=== PATIENT | male | born 1970 | race Two or more races ===

== ENCOUNTER → 2021-03-28 | Outpatient (CLI) | payer BC ==
[2021-03-28 11:31] LABS: Anisocytosis Slight; Basophils # (A) 0.1 k/uL (0-0.2); Basophils % (A) 1 %; Eosinophils # (A) 0.6 k/uL (0-0.7); Eosinophils % (A) 6 %; HCT 49.2 % (39.0-53.0); HGB 14.7 gm/dL (13.0-17.5); Hypochromasia Marked; Lymphocytes # (A) 1.5 k/uL (1.0-4.8); Lymphocytes % (A) 16 %; MCH 20.3 pg (25.0-35.0); MCHC 29.8 g/dL (31.0-37.0); MCV 68.3 fL (80.0-100.0); Mean Platelet Volume 7.3; Microcytosis Marked; Monocytes # (A) 0.4 k/uL (0-1.0); Monocytes % (A) 5 %; Neutrophils # (A) 6.3 k/uL (1.3-7.7); Neutrophils % (A) 68 %; Platelet Count 481 k/uL (150-450); WBC 9.2 k/uL (3.8-10.6)
[2021-03-28 11:43] LABS: RBC 7.28 m/uL (4.30-5.90)
== END | disposition home or self-care (01) ==
LOC: LABWHC1 10:57 → EDSTATUS 11:00
PROVIDERS: ATTEND Internal Medicine Hematology & Oncology
DX: D45 Polycythemia vera (principal)
CPT/HCPCS: 36415; 85025

== ENCOUNTER → 2021-03-28 | Outpatient (CLI) | payer BC ==
[2021-03-28 11:32] VITALS: RESP 16; TEMP 98.8
[2021-03-28 12:23] VITALS: BP 147/106; PULSE 78
== END | disposition home or self-care (01) ==
LOC: EDSTATUS 10:45 → PROCWHC3 11:17
PROVIDERS: ATTEND Internal Medicine Hematology & Oncology
DX: D45 Polycythemia vera (principal)
CPT/HCPCS: 99195

== ENCOUNTER → 2021-11-02 | Outpatient (CLI) | payer BC ==
[~2021-11-02] MED LIST: SODIUM CHLORIDE 0.9% 500 ML 500 ML in EMPTY BAG 1 BAG IV PRN
[2021-11-02 12:02] VITALS: RESP 16; TEMP 98.5
[2021-11-02 12:36] LABS: Anisocytosis Slight; HCT 48.4 % (39.0-53.0); HGB 14.3 gm/dL (13.0-17.5); Hypochromasia Marked; MCH 21.1 pg (25.0-35.0); MCHC 29.7 g/dL (31.0-37.0); MCV 71.2 fL (80.0-100.0); Mean Platelet Volume 7.8; Microcytosis Marked; Platelet Count 491 k/uL (150-450); RBC 6.79 m/uL (4.30-5.90); RDW 19.4 % (11.5-15.5); WBC 10.8 k/uL (3.8-10.6)
[2021-11-02 12:56] VITALS: BP 165/117; PULSE 83
== END | disposition home or self-care (01) ==
LOC: PROCWHC3 11:27
PROVIDERS: ATTEND Internal Medicine Hematology & Oncology
DX: E80.1 Porphyria cutanea tarda (principal)
CPT/HCPCS: 36415; 85027; 99195

== ENCOUNTER → 2022-04-26 | Outpatient (CLI) | payer BC ==
[2022-04-26 11:20] VITALS: RESP 16; TEMP 98
[2022-04-26 11:30] LABS: Anisocytosis Slight; Basophils # (A) 0.1 k/uL (0-0.2); Basophils % (A) 1 %; Eosinophils # (A) 0.8 k/uL (0-0.7); Eosinophils % (A) 8 %; HCT 49.5 % (39.0-53.0); Hypochromasia Marked; Lymphocytes # (A) 1.6 k/uL (1.0-4.8); Lymphocytes % (A) 15 %; MCH 19.8 pg (25.0-35.0); MCHC 28.4 g/dL (31.0-37.0); MCV 69.9 fL (80.0-100.0); Mean Platelet Volume 7.9; Microcytosis Marked; Monocytes # (A) 0.6 k/uL (0-1.0); Monocytes % (A) 6 %; Neutrophils # (A) 6.8 k/uL (1.3-7.7); Neutrophils % (A) 67 %; Platelet Count 462 k/uL (150-450); RDW 19.3 % (11.5-15.5); WBC 10.1 k/uL (3.8-10.6)
[2022-04-26 11:56] LABS: RBC 7.08 m/uL (4.30-5.90)
[2022-04-26 13:09] VITALS: BP 163/115; PULSE 77
== END | disposition home or self-care (01) ==
LOC: PROCWHC3 10:54
PROVIDERS: ATTEND Internal Medicine Hematology & Oncology
DX: E80.1 Porphyria cutanea tarda (principal)
CPT/HCPCS: 36415; 85025; 99195

== ENCOUNTER → 2023-05-16 | Outpatient (CLI) | payer BC ==
[2023-05-16 07:49] VITALS: RESP 16; TEMP 97.8
[2023-05-16 08:09] LABS: Anisocytosis Slight; Basophils % (A) 0 %; Eosinophils # (A) 1.2 k/uL (0-0.7); Eosinophils % (A) 12 %; HGB 17.9 gm/dL (13.0-17.5); Hypochromasia Marked; Lymphocytes # (A) 1.4 k/uL (1.0-4.8); Lymphocytes % (A) 14 %; MCH 22.2 pg (25.0-35.0); MCHC 30.6 g/dL (31.0-37.0); MCV 72.4 fL (80.0-100.0); Microcytosis Marked; Monocytes # (A) 0.4 k/uL (0-1.0); Monocytes % (A) 4 %; Neutrophils # (A) 6.8 k/uL (1.3-7.7); Neutrophils % (A) 68 %; Platelet Count 459 k/uL (150-450); RDW 19.3 % (11.5-15.5); WBC 10.1 k/uL (3.8-10.6)
[2023-05-16 08:12] LABS: RBC 8.06 m/uL (4.30-5.90)
[2023-05-16 08:15] LABS: HCT 58.3 % (39.0-53.0)
[2023-05-16 08:37] VITALS: BP 156/107; PULSE 93
== END ==
LOC: PROCWHC3 07:29
PROVIDERS: ATTEND Internal Medicine Hematology & Oncology
DX: D75.1 Secondary polycythemia (principal)
CPT/HCPCS: 36415; 85025; 99195

== ENCOUNTER → 2023-12-12 | Outpatient (CLI) | payer BC ==
[2023-12-12 13:30] VITALS: RESP 16; TEMP 97.9
[2023-12-12 13:40] LABS: Anisocytosis Moderate; Basophils # (A) 0.1 k/uL (0-0.2); Basophils % (A) 1 %; Eosinophils # (A) 0.7 k/uL (0-0.7); Eosinophils % (A) 7 %; HGB 17.4 gm/dL (13.0-17.5); Hypochromasia Marked; Lymphocytes # (A) 1.2 k/uL (1.0-4.8); Lymphocytes % (A) 11 %; MCH 22.1 pg (25.0-35.0); MCHC 29.6 g/dL (31.0-37.0); MCV 74.8 fL (80.0-100.0); Mean Platelet Volume 6.9; Microcytosis Moderate; Monocytes # (A) 0.4 k/uL (0-1.0); Monocytes % (A) 4 %; Neutrophils # (A) 7.7 k/uL (1.3-7.7); Neutrophils % (A) 75 %; Platelet Count 496 k/uL (150-450); WBC 10.3 k/uL (3.8-10.6)
[2023-12-12 14:00] LABS: RBC 7.92 m/uL (4.30-5.90)
[2023-12-12 14:01] LABS: HCT 58.7 % (39.0-53.0)
[2023-12-12 14:43] VITALS: BP 203/128; PULSE 87
== END ==
LOC: PROCWHC3 13:00
PROVIDERS: ATTEND Internal Medicine Hematology & Oncology
DX: D75.1 Secondary polycythemia (principal)
CPT/HCPCS: 36415; 85025; 99195

== ENCOUNTER → 2024-02-05 | Outpatient (CLI) | payer BC ==
[2024-02-05 11:54] LABS: Anisocytosis Slight; HGB 16.4 gm/dL (13.0-17.5); Hypochromasia Marked; MCH 21.2 pg (25.0-35.0); MCHC 29.3 g/dL (31.0-37.0); MCV 72.4 fL (80.0-100.0); Mean Platelet Volume 7.1; Microcytosis Moderate; Platelet Count 418 k/uL (150-450); Poikilocytosis Slight; RDW 18.6 % (11.5-15.5); WBC 11.4 k/uL (3.8-10.6)
[2024-02-05 12:04] LABS: HCT 56.2 % (39.0-53.0); RBC 7.76 m/uL (4.30-5.90)
[2024-02-05 12:12] VITALS: BP 181/127; PULSE 83; RESP 16; TEMP 98.2
== END ==
LOC: PROCWHC3 11:19
PROVIDERS: ATTEND Family Medicine
DX: D75.1 Secondary polycythemia (principal)
CPT/HCPCS: 36415; 85027; 99195

== ENCOUNTER → 2024-06-11 | Outpatient (CLI) | payer BC ==
[2024-06-11 13:11] VITALS: PULSE 101; RESP 18; TEMP 98.4
[2024-06-11 13:52] VITALS: BP 161/110
[2024-06-11 14:00] LABS: Anisocytosis Slight; Basophils % (A) 1 %; Eosinophils # (A) 0.6 k/uL (0-0.7); Eosinophils % (A) 6 %; HCT 52.7 % (39.0-53.0); Hypochromasia Marked; Lymphocytes # (A) 1.1 k/uL (1.0-4.8); Lymphocytes % (A) 12 %; MCH 21.1 pg (25.0-35.0); MCHC 30.3 g/dL (31.0-37.0); MCV 69.6 fL (80.0-100.0); Mean Platelet Volume 8.3; Microcytosis Marked; Monocytes # (A) 0.4 k/uL (0-1.0); Monocytes % (A) 4 %; Neutrophils # (A) 7.4 k/uL (1.3-7.7); Neutrophils % (A) 76 %; Platelet Count 402 k/uL (150-450); Poikilocytosis Slight; RDW 19.4 % (11.5-15.5); WBC 9.8 k/uL (3.8-10.6)
[2024-06-11 14:03] LABS: RBC 7.57 m/uL (4.30-5.90)
== END ==
LOC: PROCWHC3 12:49
PROVIDERS: ATTEND Internal Medicine
DX: D75.1 Secondary polycythemia (principal)
CPT/HCPCS: 36415; 85025; 99195

== ENCOUNTER → 2024-08-06 | Outpatient (CLI) | payer BC ==
[~2024-08-06] MED LIST changes: +SODIUM CHLORIDE 0.9% 250 ML in EMPTY BAG 1 BAG IV PRN
[2024-08-06 13:30] VITALS: BP 177/98; PULSE 84; RESP 16; TEMP 98
[2024-08-06 13:58] LABS: Anisocytosis Slight; Basophils # (A) 0.1 k/uL (0-0.2); Basophils % (A) 0 %; Eosinophils # (A) 0.9 k/uL (0-0.7); Eosinophils % (A) 8 %; HCT 53.2 % (39.0-53.0); HGB 15.6 gm/dL (13.0-17.5); Hypochromasia Marked; Lymphocytes # (A) 1.5 k/uL (1.0-4.8); Lymphocytes % (A) 12 %; MCH 20.6 pg (25.0-35.0); MCHC 29.4 g/dL (31.0-37.0); MCV 69.9 fL (80.0-100.0); Mean Platelet Volume 6.8; Microcytosis Marked; Monocytes # (A) 0.5 k/uL (0-1.0); Monocytes % (A) 4 %; Neutrophils # (A) 8.9 k/uL (1.3-7.7); Neutrophils % (A) 74 %; Platelet Count 375 k/uL (150-450); RDW 19.2 % (11.5-15.5)
== END ==
LOC: PROCWHC3 12:41
PROVIDERS: ATTEND Internal Medicine
DX: D75.1 Secondary polycythemia (principal)
CPT/HCPCS: 36415; 85025; 99195

== ENCOUNTER → 2024-10-08 | Outpatient (CLI) | payer BC ==
[2024-10-08 12:36] VITALS: TEMP 98
[2024-10-08 13:29] LABS: Anisocytosis Slight; Basophils # (A) 0.1 k/uL (0-0.2); Basophils % (A) 1 %; Eosinophils # (A) 0.6 k/uL (0-0.7); Eosinophils % (A) 6 %; HCT 50.5 % (39.0-53.0); Hypochromasia Marked; Lymphocytes # (A) 1.4 k/uL (1.0-4.8); Lymphocytes % (A) 13 %; MCHC 29.6 g/dL (31.0-37.0); MCV 67.6 fL (80.0-100.0); Mean Platelet Volume 7.5; Microcytosis Marked; Monocytes # (A) 0.6 k/uL (0-1.0); Monocytes % (A) 6 %; Neutrophils # (A) 7.9 k/uL (1.3-7.7); Neutrophils % (A) 74 %; Platelet Count 397 k/uL (150-450); Poikilocytosis Slight; RDW 18.7 % (11.5-15.5); WBC 10.7 k/uL (3.8-10.6)
[2024-10-08 13:30] LABS: RBC 7.48 m/uL (4.30-5.90)
[2024-10-08 14:01] VITALS: BP 191/139; PULSE 91; RESP 16
== END ==
LOC: PROCWHC3 12:25
PROVIDERS: ATTEND Internal Medicine Hematology & Oncology
DX: D75.1 Secondary polycythemia (principal)
CPT/HCPCS: 36415; 85025; 99195

== ENCOUNTER → 2025-01-26 | Outpatient (CLI) | payer BC ==
[2025-01-26 14:18] VITALS: RESP 16; TEMP 98.1
[2025-01-26 14:22] LABS: Basophils # (A) 0.12 10*3/uL (0.00-0.10); Basophils % (A) 1.1 %; Eosinophils # (A) 0.83 10*3/uL (0.04-0.35); Eosinophils % (A) 7.4 %; HCT 48.5 % (39.6-50.0); HGB 13.8 g/dL (13.0-17.0); Immature Platelet Fraction 3.6 % (1.1-6.1); Lymphocytes # (A) 1.41 10*3/uL (0.90-5.00); Lymphocytes % (A) 12.5 %; MCH 18.9 pg (27.0-32.0); MCHC 28.5 g/dL (32.0-37.0); MCV 66.3 fL (80.0-97.0); Mean Platelet Volume 9.7 fL (9.5-12.2); Monocytes # (A) 0.79 10*3/uL (0.20-1.00); Neutrophils # (A) 8.03 10*3/uL (1.80-7.70); Neutrophils % (A) 71.4 %; Platelet Count 443 10*3/uL (140-440); RDW 22.9 % (11.5-14.5); WBC 11.25 10*3/uL (4.50-10.00)
[2025-01-26 14:47] LABS: RBC 7.31 10*6/uL (4.40-5.60)
[2025-01-26 14:57] VITALS: BP 196/113; PULSE 75
[2025-01-26 15:05] LABS: Anisocytosis (M) Present
== END ==
LOC: PROCWHC3 12:57
PROVIDERS: ATTEND Internal Medicine
DX: D75.1 Secondary polycythemia (principal)
CPT/HCPCS: 36415; 85025; 99195

== ENCOUNTER → 2025-03-31 | Outpatient (CLI) | payer BC ==
[2025-03-31 13:05] VITALS: RESP 16; TEMP 98.8
[2025-03-31 13:21] LABS: Basophils # (A) 0.11 10*3/uL (0.00-0.10); Basophils % (A) 0.9 %; Eosinophils # (A) 1.01 10*3/uL (0.04-0.35); Eosinophils % (A) 7.9 %; HCT 46.7 % (39.6-50.0); HGB 13.4 g/dL (13.0-17.0); Immature Platelet Fraction 4.8 % (1.1-6.1); Lymphocytes # (A) 1.58 10*3/uL (0.90-5.00); Lymphocytes % (A) 12.4 %; MCH 18.9 pg (27.0-32.0); MCHC 28.7 g/dL (32.0-37.0); MCV 65.9 fL (80.0-97.0); Monocytes # (A) 0.77 10*3/uL (0.20-1.00); Monocytes % (A) 6.0 %; Neutrophils # (A) 9.20 10*3/uL (1.80-7.70); Neutrophils % (A) 72.3 %; Platelet Count 461 10*3/uL (140-440); RBC 7.09 10*6/uL (4.40-5.60); RDW 22.9 % (11.5-14.5); WBC 12.74 10*3/uL (4.50-10.00)
[2025-03-31 13:29] VITALS: BP 156/99; PULSE 83
[2025-03-31 13:53] LABS: Anisocytosis (M) Present; Stomatocytes Present
== END ==
LOC: PROCWHC3 12:22
PROVIDERS: ATTEND Internal Medicine
DX: D75.1 Secondary polycythemia (principal)
CPT/HCPCS: 36415; 85025; 99195